=== PATIENT | male | born 1995 | race Caucasian/White ===

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

== ENCOUNTER → 2017-09-13 | Outpatient (REF) | payer BC, OTHER ==
[2017-09-13 18:03] LABS: ALBUMIN 3.6 GM/DL (3.2-5.2); ALBUMIN/GLOBULIN RATIO 1.06 (1.00-1.93); ALKALINE PHOSPHATASE 86 U/L (45-117); ALT/SGPT 25 U/L (12-78); ANION GAP 8 MEQ/L (8-16); AST/SGOT 16 U/L (7-37); BILIRUBIN,TOTAL 0.4 MG/DL (0.2-1.0); BLOOD UREA NITROGEN 14 MG/DL (7-18); CALCIUM LEVEL 8.8 MG/DL (8.5-10.1); CARBON DIOXIDE LEVEL 27 MEQ/L (21-32); CHLORIDE LEVEL 105 MEQ/L (98-107); CREATININE FOR GFR 0.86 MG/DL (0.55-1.30); GLUCOSE, FASTING 84 MG/DL (70-100); POTASSIUM SERUM 4.3 MEQ/L (3.5-5.1); SODIUM LEVEL 140 MEQ/L (136-145)
[2017-09-13 19:20] LABS: BASO % 0.6 % (0.0-1.0); EOS # 0.3 10^3/uL (0.0-0.50); HEMATOCRIT 41.9 % (36.0-47.0); HEMOGLOBIN 13.5 g/dl (12.0-15.5); IMMATURE GRANULOCYTE % 0.2 % (0-3.0); LYMPH # 1.7 10^3/uL (1.5-6.5); LYMPH % 31.7 % (24.0-44.0); MEAN CORPUSCULAR HEMOGLOBIN 29.5 pg (27.0-33.0); MEAN CORPUSCULAR HGB CONC 32.2 g/dl (32.0-36.5); MEAN CORPUSCULAR VOLUME 91.7 fl (80.0-96.0); MONO # 0.5 10^3/uL (0.0-0.8); MONO % 10.4 % (0.0-5.0); NEUTROPHILS # 2.7 10^3/uL (1.8-7.7); NEUTROPHILS % 52.1 % (36.0-66.0); PLATELET COUNT, AUTOMATED 207 10^3/uL (150-450); RED BLOOD COUNT 4.57 10^6/uL (4.00-5.40); RED CELL DISTRIBUTION WIDTH 12.6 % (11.5-14.5); WHITE BLOOD COUNT 5.2 10^3/uL (4.0-10.0)
[2017-09-21 13:33] LABS: LACOSAMIDE LEVEL 11.3 ug/mL (5.0-10.0)
[2017-09-21 13:33] LABS: LEVETIRACETAM (KEPPRA) 28.2 ug/mL (10.0-40.0)
== END ==
LOC: M LABNEURO 14:19
DX: G40.909 Epilepsy, unspecified, not intractable, without status epilepticus (principal)
CPT/HCPCS: 80053

== ENCOUNTER → 2018-01-05 | Outpatient (CLI) | payer BC, OTHER | LOC: M RAD 08:43 | DX: S43.006A Unspecified dislocation of unspecified shoulder joint, initial encounter (principal); X58.XXXA Exposure to other specified factors, initial encounter; Y92.9 Unspecified place or not applicable; S46.911A Strain of unspecified muscle, fascia and tendon at shoulder and upper arm level, right arm, initial encounter | CPT/HCPCS: 73221 ==

== ENCOUNTER → 2018-01-05 | Outpatient (CLI) | payer BC ==
[2018-01-05 10:40] LABS: BASO % 0.6 % (0.0-1.0); EOS # 0.3 10^3/uL (0.0-0.50); EOS % 5.4 % (0.0-3.0); HEMATOCRIT 41.1 % (36.0-47.0); HEMOGLOBIN 13.4 g/dl (12.0-15.5); IMMATURE GRANULOCYTE % 0.2 % (0-3.0); LYMPH # 2.2 10^3/uL (1.5-6.5); LYMPH % 40.4 % (24.0-44.0); MEAN CORPUSCULAR HEMOGLOBIN 30.7 pg (27.0-33.0); MEAN CORPUSCULAR HGB CONC 32.6 g/dl (32.0-36.5); MEAN CORPUSCULAR VOLUME 94.1 fl (80.0-96.0); MONO # 0.5 10^3/uL (0.0-0.8); MONO % 9.2 % (0.0-5.0); NEUTROPHILS # 2.4 10^3/uL (1.8-7.7); NEUTROPHILS % 44.2 % (36.0-66.0); PLATELET COUNT, AUTOMATED 208 10^3/uL (150-450); RED BLOOD COUNT 4.37 10^6/uL (4.00-5.40); WHITE BLOOD COUNT 5.4 10^3/uL (4.0-10.0)
[2018-01-05 11:27] LABS: ALBUMIN 3.6 GM/DL (3.2-5.2); ALBUMIN/GLOBULIN RATIO 1.03 (1.00-1.93); ALKALINE PHOSPHATASE 58 U/L (45-117); ALT/SGPT 16 U/L (12-78); ANION GAP 8 MEQ/L (8-16); AST/SGOT 11 U/L (7-37); BILIRUBIN,TOTAL 0.2 MG/DL (0.2-1.0); BLOOD UREA NITROGEN 14 MG/DL (7-18); CALCIUM LEVEL 8.5 MG/DL (8.5-10.1); CARBON DIOXIDE LEVEL 29 MEQ/L (21-32); CHLORIDE LEVEL 103 MEQ/L (98-107); CREATININE FOR GFR 0.74 MG/DL (0.55-1.30); GLUCOSE, FASTING 84 MG/DL (70-100); POTASSIUM SERUM 4.3 MEQ/L (3.5-5.1); SODIUM LEVEL 140 MEQ/L (136-145); TOTAL PROTEIN 7.1 GM/DL (6.4-8.2)
[2018-01-11 00:08] LABS: LAMOTRIGINE (LAMICTAL) 4.2 ug/mL (2.0-20.0)
[2018-01-11 00:08] LABS: LEVETIRACETAM (KEPPRA) 47.8 ug/mL (10.0-40.0)
== END ==
LOC: M LAB 08:47
DX: R56.9 Unspecified convulsions (principal)
CPT/HCPCS: 80053

== ENCOUNTER 2018-07-18 16:23 | Observation (INO) | payer BC ==
[~2018-07-18] VITALS: Ht 175.3 cm; Wt 68.4 kg
[2018-07-18 18:15] VITALS: BP 126/76
--- NOTE | 2018-07-18 19:35 | HPEPDOC ---
General Date of Admission July 18, 2018 at 18:20 Attending Physician: SOFÍA ABEL MD Chief Complaint The patient is a 23-year-old female admitted with a reason for visit of [facility] Seizures. History of Present Illness Patient is a 23-year-old female, past medical history significant for seizure disorder on antiseizure medication. Today, patient had 2 episodes of seizure activity, prompting seeking attention in the emergency room at [facility]. In the emergency room. Patient apparently had another seizure and she was transferred to this facility for further evaluation and management. 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 Last night she had a redbull drink, a bloody Isabel and an angry orchard drink. She also reports she has not been sleeping for a week now. Six months ago patient had breakthrough seizure and at that time she also was not getting enough sleep. Medications were not adjusted and doses were kept the same. Her neurologist Dr. Otero who practices here in [place] felt seizure was caused by lack of rest and adequate sleep. She reports compliance with her medications. At time of assessment. She reports feeling very tired. Otherwise, denies chills or fever, chest pain, shortness of breath, nausea, weakness, constipation or diarrhea Allergies Coded Allergies: No Known Allergies (Unverified , 07/18/18) Past Medical History Medical History Seizure disorder Vaping-Juul Family History Father: Hypertension and diabetes mellitus. Mother: Cancer Social History * Smoker: current smoker (vapes-juul) Alcohol: occationally Drugs: denies A-FIB/CHADSVASC A-FIB History Current/History of A-Fib/PAF?: No Current Oral Anticoagulant The: No Review of Systems Other systems A 10 point pertinent ROS was completed, negative except as stated in the HPI Physical Examination Other physical findings GENERAL: NAD SKIN : Warm, dry intact HEENT: Atraumatic, normocephalic, PERRL, moist mucous membrane CARDIOVASCULAR: Regular rate and rhythm, S1S2, no JVD, no edema, distal pulses + and palpable RESP: CTAB, no accessory muscle use noted ABDOMEN: BS+ non distended non tender : MS: no joint deformities NEURO: Alert and oriented x 3, CN2-12 grossly intact PSYCH: no anxiety or agitation, appropriate mood and affect. Vital Signs Vital Signs Date Time Temp Pulse Resp B/P (MAP) Pulse Ox O2 Delivery O2 Flow Rate FiO2 07/18/18 18:15 98.1 60 18 126/76 (93) Assessment/Plan Breakthrough seizure -Possibly induced by alcohol intake and redbull -Patient reports compliance with her medication -She is also on control, which could also reduce the therapeutic levels of her antiseizure medication -Has been discussed with neurologist- Dr Campbell -Recommending EEG, increase dose lamotrigine to 300mg BID after assessing current levels -She is not to drive for at least 6 months -Management and seizure precautions Nicotine use disorder -Has been discussed with patient and consult DVT prophylaxis -Lovenox subcutaneous daily Patient can be discharged tomorrow after EEG has been completed. She will need to be monitored overnight Plan / VTE VTE Prophylaxis Ordered?: Yes JANUSZ CARSONP July 18, 2018 19:35
[2018-07-18] MEDS ORDERED: ENOXAPARIN 40 MG/0.4 ML SYRINGE (J1650) SC SCH (20:00)
[2018-07-18] MEDS ORDERED: KEPP10002 PO (21:14)
[2018-07-18] MEDS ORDERED: CLEO1GEL TOP (21:14)
[2018-07-18] MEDS ORDERED: LARI1TAB11 PO (21:14)
[2018-07-18] MEDS ORDERED: LAMO200T2 PO (21:14)
[2018-07-18] MEDS ORDERED: LAMO100T PO (21:14)
[2018-07-18] MEDS ORDERED: CLIN2CR (21:14)
[2018-07-18] MEDS ORDERED: ALEV1TAB PO (21:16)
[2018-07-18 22:00] VITALS: BP 133/64
[2018-07-18] MEDS: levETIRAcetam 250MG TABLET (KEPPRA) PO SCH (22:15)
[2018-07-18] MEDS: lamoTRIgine 100MG TAB PO SCH (22:15)
[2018-07-19 02:00] VITALS: BP 120/58
[2018-07-19 06:00] VITALS: BP 123/62
[2018-07-19 06:18] LABS: HEMATOCRIT 38.2 % (36.0-47.0); HEMOGLOBIN 12.7 g/dl (12.0-15.5); MEAN CORPUSCULAR HEMOGLOBIN 31.6 pg (27.0-33.0); MEAN CORPUSCULAR HGB CONC 33.2 g/dl (32.0-36.5); PLATELET COUNT, AUTOMATED 162 10^3/uL (150-450); RED BLOOD COUNT 4.02 10^6/uL (4.00-5.40)
[2018-07-19 06:40] LABS: ALBUMIN 3.4 GM/DL (3.2-5.2); ALT/SGPT 12 U/L (12-78); BILIRUBIN,TOTAL 0.3 MG/DL (0.2-1.0); BLOOD UREA NITROGEN 13 MG/DL (7-18); CALCIUM LEVEL 8.8 MG/DL (8.5-10.1); CARBON DIOXIDE LEVEL 26 MEQ/L (21-32); CHLORIDE LEVEL 108 MEQ/L (98-107); CREATININE FOR GFR 0.86 MG/DL (0.55-1.30); GLOMERULAR FILTRATION RATE > 60.0 (>60); GLUCOSE, FASTING 103 MG/DL (70-100); POTASSIUM SERUM 3.6 MEQ/L (3.5-5.1); SODIUM LEVEL 140 MEQ/L (136-145); TOTAL PROTEIN 6.3 GM/DL (6.4-8.2)
[2018-07-19] MEDS: lamoTRIgine 100MG TAB PO SCH (09:55)
[2018-07-19] MEDS: levETIRAcetam 250MG TABLET (KEPPRA) PO SCH (09:55)
[2018-07-19 10:00] VITALS: BP 131/62
[2018-07-19 14:05] LABS: AMPHETAMINES URINE REFLEX NEGATIVE (NEGATIVE); BARBITURATES URINE REFLEX NEGATIVE (NEGATIVE); BENZODIAZEPINES URINE REFLEX NEGATIVE (NEGATIVE); CANNABINOIDS URINE REFLEX NEGATIVE (NEGATIVE); COCAINE METABOLITE URINE REFLE NEGATIVE (NEGATIVE); METHADONE URINE REFLEX NEGATIVE (NEGATIVE); OPIATES URINE REFLEX NEGATIVE (NEGATIVE); PHENCYCLIDINE URINE REFLEX NEGATIVE (NEGATIVE)
--- NOTE | 2018-07-19 14:52 | IPNPDOC ---
Subjective Date Seen The patient was seen on 07/19/18. Subjective Chief Complaint/HPI Patient complains of soreness of her right shoulder which got dislocated twice yesterday and did not pop back by itself as it usually does when this happens. Other cedeño she does not have any complaints. Her postictal state has resolved. Objective Physical Examination General Exam: Positive: Alert, Cooperative, No Acute Distress Eye Exam: Positive: PERRLA, Conjunctiva & lids normal, EOMI; Negative: Sclera icteric ENT Exam: Positive: Atraumatic, Mucous membr. moist/pink, Pharynx Normal Neck Exam: Positive: Supple; Negative: JVD, thyromegaly, +2 carotid pulse wo bruit, Lymphadenopathy, Other Heart Exam: Positive: Rate Normal, Regular Rhythm, Normal S1, Normal S2; Negative: Murmurs, Rubs Telemetry: Positive: Sinus, Bradycardia Abdomen Exam: Positive: Normal bowel sounds, Soft; Negative: Tenderness, Hepatospenomegaly Extremity Exam: Positive: Normal pulses, Tenderness (right shoulder as it got dislocated twice yesterday.); Negative: Clubbing, Cyanosis, Edema Skin Exam: Positive: Nl turgor and temperature; Negative: Rash, Breakdown Neuro Exam: Positive: Normal Gait, Normal Speech, Cranial Nerves 3-12 NL, Reflexes 2+ Assessment /Plan Assessment Patient is a 23-year-old female, past medical history of Epilepsy on antiseizure medication. Today, patient had 2 episodes of seizure activity, prompting seeking attention in the emergency room at [facility]. In the emergency room. Patient apparently had another seizure and she was transferred to this facility for further evaluation and management. 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 Last night she had a redbull drink, a bloody Isabel and an angry orchard drink. She also reports she has not been sleeping for a week now. Six months ago patient had breakthrough seizure and at that time she also was not getting enough sleep. She was admitted for break through seizures. Breakthrough seizure -Possibly induced by sleep deprivation and alcohol intake and redbull -Patient reports compliance with her medication -She is also on control, which could also reduce the therapeutic levels of her antiseizure medication -Has been discussed with neurologist- Dr Hughes -Recommending EEG, increase dose lamotrigine to 300mg BID after assessing current levels - however patient tells me she takes lamotrigine 300 mg bid already. -She is not to drive for at least 6 months -Management and seizure precautions Recurrent dislocation of the right shoulder It got dislocated twice yesterday during the seizure episode. follows with [facility] at [facility] she has been advised Physical therapy which she is yet to start. Nicotine use disorder Has been discussed with patient and consult DVT prophylaxis Lovenox subcutaneous daily Plan/VTE VTE Prophylaxis Ordered?: Yes VS, I&O, 24H, Fishbone Vital Signs/I&O Vital Signs Date Time Temp Pulse Resp B/P (MAP) Pulse Ox O2 Delivery O2 Flow Rate FiO2 07/19/18 10:00 97.5 82 16 131/62 (85) 97 I&O- Last 24 Hours up to 6 AM 07/19/18 05:59 Intake Total 250 ml Balance 250 ml Laboratory Data 24H LABS Laboratory Tests 2 07/18/18 19:11: Human Chorionic Gonadotropin, Quant < 1.0 07/18/18 19:33: 07/18/18 19:35: 07/19/18 05:35: Anion Gap 6L, Glomerular Filtration Rate > 60.0, Blood Urea Nitrogen 13, Creatinine 0.86, Sodium Level 140, Potassium Level 3.6, Chloride Level 108H, Carbon Dioxide Level 26, Calcium Level 8.8, Aspartate Amino Transf (AST/SGOT) 10, Alanine Aminotransferase (ALT/SGPT) 12, Alkaline Phosphatase 46, Total Bilirubin 0.3, Total Protein 6.3L, Albumin 3.4, Albumin/Globulin Ratio 1.17 07/19/18 05:36: Nucleated Red Blood Cells % (auto) 0.0 07/19/18 11:39: Urine Color YELLOW, Urine Appearance CLEAR, Urine pH 6.0, Urine Specific Milligan 1.006, Urine Protein NEGATIVE, Urine Glucose (UA) NEGATIVE, Urine Ketones NEGATIVE, Urine Blood NEGATIVE, Urine Nitrite NEGATIVE, Urine Bilirubin NEGATIVE, Urine Urobilinogen 0.2, Urine Leukocyte Esterase NEGATIVE, Urine WBC (Auto) 1, Urine RBC (Auto) 0, Urine Hyaline Casts (Auto) 0, Urine Bacteria (Auto) 1+H, Urine Squamous Epithelial Cells 2, Urine Sperm (Auto) 07/19/18 13:03: Urine Amphetamines Screen NEGATIVE, Urine Benzodiazepines Screen NEGATIVE, Urine Opiates Screen NEGATIVE, Urine Methadone Screen NEGATIVE, Urine Barbiturates Screen NEGATIVE, Urine Phencyclidine Screen NEGATIVE, Urine Cocaine Metabolite Screen NEGATIVE, Urine Cannabinoids Screen NEGATIVE CBC/BMP Laboratory Tests 07/19/18 05:35 Calcium Level 8.8, Aspartate Amino Transf (AST/SGOT) 10, Alanine Aminotransferase (ALT/SGPT) 12, Alkaline Phosphatase 46, Total Bilirubin 0.3, Total Protein 6.3 L, Albumin 3.4 07/19/18 05:36 Red Blood Count 4.02, Mean Corpuscular Volume 95.0, Mean Corpuscular Hemoglobin 31.6, Mean Corpuscular Hemoglobin Concent 33.2, Red Cell Distribution Width 11.5 Microbiology Microbiology 07/18/18 Blood Culture, Received Pending 07/18/18 Blood Culture, Received Pending BETHANIE DELGADILLO MD July 19, 2018 14:52
[2018-07-19 15:55] VITALS: BP 132/69
[2018-07-19] MEDS ORDERED: LAMO100T PO (17:37)
--- NOTE | 2018-07-20 11:55 | EEG ---
DATE OF PROCEDURE: 07/19/2018 REFERRING PHYSICIAN: Dr. Dereck Barber DIAGNOSIS: Seizure. EEG NUMBER: [id number] HISTORY: Patient with history of generalized tonic-clonic seizures who had recurrent seizures. She is currently taking Lamictal and Keppra. This EEG was done to rule out epileptic potential. TECHNICAL DESCRIPTION: This digital EEG was recorded by 21 scalp ear and two EKG electrodes and was reviewed in bipolar and referential montages following reformatting in 10-20 international electrode placement system. INTERPRETATION: Patient was noted to be in awake and drowsy states during this EEG. Resting awake background rhythm consisted of well-formed posterior dominant rhythm with anterior/posterior gradient comprising of 11 Hz alpha activity measuring 15-80 microvolts in amplitude, which was symmetric and reactive to eye opening. Attenuation of posterior dominant rhythm was seen during transition into drowsiness. Stage I and II sleep were reviewed and were symmetric bilaterally. Hyperventilation could not be performed. Photic stimulation remained unremarkable. There were multiple recurrences of left frontal and temporal and at times bilateral frontal and temporal sharp and slow wave complexes during wakefulness and sleep. No relevant clinical activity was noted. CONCLUSION: This EEG in awake, drowsy states, stage I and II sleep is abnormal due to presence of left frontal and temporal and at times bilateral frontal and temporal epileptiform discharges which may represent fragments of primary generalized epileptiform discharges or frontal lobe epilepsy. Clinical correlation is recommended. MTDD
--- NOTE | 2018-07-20 13:28 | CR ---
DATE OF CONSULTATION: 07/19/2018 REFERRING PHYSICIAN: Dr. Dereck Barber REASON FOR CONSULTATION: Generalized tonic-clonic seizures. HISTORY OF PRESENT ILLNESS: Adiel Art is a 23-year-old woman with history of epilepsy who follows with Dr. Otero at our office for her generalized tonic-clonic seizures. 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 The night before her generalized tonic-clonic seizure she had a Red Bull drink, a Bloody Isabel and Angry Orchard drink. She reported that she has not been sleeping for a week now. She had a generalized tonic-clonic seizure 6 months ago. She was not getting enough sleep at that time. Patient states that she has been compliant with her medications. When the patient came to [facility] as transfer from [facility], her lamotrigine dose was reported as 200 mg three times a day, so I recommended to increase it to 300 mg by mouth twice a day. The patient states that she has been taking 300 mg twice a day at home. She denies any headaches, neck or back pain. She denies dysphagia, dysarthria, diplopia, urinary incontinence. PAST MEDICAL HISTORY: Generalized epilepsy and seizures. HOME MEDICATIONS: - Keppra 1000 mg by mouth twice a day - Lamictal 3 mg by mouth twice a day SOCIAL HISTORY: She currently vapes Juul. She occasionally drinks alcohol but had a couple of drinks the night before her seizures. She denies illicit drugs. FAMILY HISTORY: Mother with history of cancer and father with a history of hypertension and diabetes. REVIEW OF SYSTEMS: All systems were reviewed and found to be noncontributory except as mentioned in history of present illness. ALLERGIES: NONE. PHYSICAL EXAMINATION: Temperature 96.9, pulse 65, respiratory 16, blood pressure 132/69. Heart: Regular rate and rhythm. Lungs: Clear to auscultation. Abdomen: Soft, nontender, nondistended. No pedal edema. No musculoskeletal abnormalities. No rash. No signs of meningeal irritation. No dysmetria, tremor or ataxia. Patient is awake, alert, oriented to place, person and time. Normal speech comprehension and repetition. Extraocular muscles are intact. No facial weakness. Tongue and uvula are midline. 5/5 strength in all four extremities. Deep tendon reflexes 2+ throughout. Normal sensation. Normal gait without ataxia. No nystagmus. Recent and distant memory is intact. DIAGNOSTIC STUDIES: Her CBC, metabolic profile, and urine toxicology screen were unremarkable. Her EEG showed left frontal and temporal and at times bilateral frontal and temporal fragments of epileptiform discharges consistent with primary generalized or frontal lobe epilepsy. ASSESSMENT: Primary generalized epilepsy and generalized tonic-clonic seizures. PLAN: 1. She is aware that she should not be driving. 2. Keppra 1000 mg by mouth twice a day and Lamictal 300 mg by mouth twice a day. It appears that gaby is some discrepancy in her dose of Lamictal. According to Dr. Allen who saw the bottle of her medications, her bottle of 200 mg pills had a lot more tablets than 100 mg tablets. 3. She declined increasing Keppra. She was advised to completely avoid alcohol. She should improve her sleep hygiene. Trazodone 1 mg by mouth nightly should be considered on outpatient basis. 4. Followup with Dr. Otero. She has an appointment scheduled next week.
== END 2018-07-19 18:08 | disposition home or self-care (01) ==
LOC: M MSPAV 18:20 → INTOOBSV 18:20
PROVIDERS: ADMIT Internal Medicine; ATTEND Internal Medicine
DX: G40.919 Epilepsy, unspecified, intractable, without status epilepticus (principal); Z79.899 Other long term (current) drug therapy; F17.200 Nicotine dependence, unspecified, uncomplicated

== ENCOUNTER 2019-08-02 10:22 | Emergency (ER) | payer BC ==
[~2019-08-02] VITALS: Ht 172.7 cm; Wt 71.8 kg
[~2019-08-02 10:22] MED LIST: ALEV1TAB PO; CLEO1GEL TOP; CLIN2CR; KEPP10002 PO; LAMO100T3 PO; LAMO200T3 PO; LARI1TAB11 PO
[2019-08-02] MEDS ORDERED: MELO15TA28 PO (10:58)
[2019-08-02 11:04] LABS: BASO % 0.5 % (0.0-1.0); EOS # 0.3 10^3/uL (0.0-0.5); EOS % 4.9 % (0.0-3.0); HEMATOCRIT 41.5 % (36.0-47.0); HEMOGLOBIN 14.2 g/dl (12.0-15.5); LYMPH # 1.1 10^3/uL (1.5-5.0); LYMPH % 18.6 % (24.0-44.0); MEAN CORPUSCULAR HEMOGLOBIN 31.8 pg (27.0-33.0); MEAN CORPUSCULAR HGB CONC 34.2 g/dl (32.0-36.5); MONO # 0.4 10^3/uL (0.0-0.8); MONO % 6.3 % (0.0-5.0); NEUTROPHILS # 4.1 10^3/uL (1.5-8.5); NEUTROPHILS % 69.5 % (36.0-66.0); PLATELET COUNT, AUTOMATED 204 10^3/uL (150-450); RED BLOOD COUNT 4.46 10^6/uL (4.00-5.40); WHITE BLOOD COUNT 5.9 10^3/uL (4.0-10.0)
[2019-08-02 12:05] LABS: INR 1.1; PROTHROMBIN TIME 13.9 SECONDS (11.8-14.0)
[2019-08-02 12:06] LABS: PARTIAL THROMBOPLASTIN TIME 27.5 SECONDS (25.0-38.4)
[2019-08-02 13:22] LABS: BLOOD UREA NITROGEN 6 MG/DL (7-18); CALCIUM LEVEL 8.7 MG/DL (8.5-10.1); CARBON DIOXIDE LEVEL 27 MEQ/L (21-32); CHLORIDE LEVEL 103 MEQ/L (98-107); CK-MB VALUE MASS < 1.0 NG/ML (<3.6); CPK CREATINE PHOSPHOKINASE 505 U/L (26-192); GLOMERULAR FILTRATION RATE > 60.0 (>60); GLUCOSE, FASTING 94 MG/DL (70-100); POTASSIUM SERUM 3.6 MEQ/L (3.5-5.1); SODIUM LEVEL 136 MEQ/L (136-145); TROPONIN I < 0.02 NG/ML (< 0.10)
[2019-08-02 13:25] LABS: HCG, SERUM QUALITATIVE NEGATIVE (NEGATIVE)
[2019-08-02 14:15] VITALS: BP 128/81
[2019-08-02] MEDS ORDERED: NS 1,000 ML IV ONE (14:30)
--- NOTE | 2019-08-03 07:43 | REP ---
CT BRAIN WITHOUT CONTRAST: CT brain performed without IV contrast. Ventricles are normal in size and position with no midline shift or mass effect. Harris-white differentiation is well maintained. There is no acute intracranial hemorrhage. There is no extra-axial fluid collection. 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 Bone window examination is unremarkable. The visualized mastoid air cells and paranasal sinuses are clear. IMPRESSION: Large cisterna magna. No acute intracranial abnormalities. Electronically Signed by Julito Harris MD 08/03/2019 09:58 A
--- NOTE | 2019-08-03 19:43 | ECGEPIP ---
[facility] - ED Test Date: 2019-08-02 Pat Name: SAM WHITTAKER Department: Room: - Gender: Female Client Services Specialist: rickie : 1995 Requested By: ZEESHAN Contreras Order Number: [id number] Reading MD: Alexa Kauffman Measurements Intervals [place] Rate: 71 P: 78 NC: 143 QRS: 106 QRSD: 101 T: 47 QT: 390 QTc: 425 Interpretive Statements SINUS RHYTHM WITH SINUS ARRHYTHMIA MARKED RIGHT AXIS DEVIATION NSTTW abnormalities NO PRIOR Electronically Signed on 08-03-2019 19:42:35 EDT by Alexa Kauffman
[2019-08-07 19:07] LABS: LAMOTRIGINE (LAMICTAL) 23.4 ug/mL (2.0-20.0); LEVETIRACETAM (KEPPRA) 37.6 ug/mL (10.0-40.0)
== END 2019-08-02 16:47 | disposition home or self-care (01) ==
LOC: M ED 10:22
DX: R79.9 Abnormal finding of blood chemistry, unspecified (principal); F14.10 Cocaine abuse, uncomplicated; G40.909 Epilepsy, unspecified, not intractable, without status epilepticus; R51 Headache; Z79.899 Other long term (current) drug therapy; Z79.3 Long term (current) use of hormonal contraceptives; F17.210 Nicotine dependence, cigarettes, uncomplicated

== ENCOUNTER 2019-12-12 08:42 | Observation (INO) | payer BC ==
[~2019-12-12] VITALS: Ht 167.6 cm; Wt 76.1 kg
[~2019-12-12 08:42] MED LIST changes: +MELO15TA28 PO
[2019-12-12] MEDS ORDERED: LEVE500T5 PO (08:59)
[2019-12-12 10:00] LABS: BASO % 0.4 % (0.0-1.0); EOS # 0.1 10^3/uL (0.0-0.5); HEMATOCRIT 38.9 % (36.0-47.0); HEMOGLOBIN 12.7 g/dl (12.0-15.5); LYMPH # 1.5 10^3/uL (1.5-5.0); LYMPH % 26.3 % (24.0-44.0); MEAN CORPUSCULAR HEMOGLOBIN 30.9 pg (27.0-33.0); MEAN CORPUSCULAR HGB CONC 32.6 g/dl (32.0-36.5); MEAN CORPUSCULAR VOLUME 94.6 fl (80.0-96.0); MONO # 0.4 10^3/uL (0.0-0.8); MONO % 7.6 % (0.0-5.0); NEUTROPHILS # 3.5 10^3/uL (1.5-8.5); NEUTROPHILS % 63.7 % (36.0-66.0); PLATELET COUNT, AUTOMATED 193 10^3/uL (150-450); RED BLOOD COUNT 4.11 10^6/uL (4.00-5.40); WHITE BLOOD COUNT 5.5 10^3/uL (4.0-10.0)
[2019-12-12 10:27] LABS: OSMOLALITY SERUM 285 MOSM/KG (275-295)
[2019-12-12 10:31] LABS: ALBUMIN 3.6 GM/DL (3.2-5.2); ALT/SGPT 15 U/L (12-78); BILIRUBIN,DIRECT < 0.1 MG/DL (0.0-0.2); BILIRUBIN,TOTAL 0.3 MG/DL (0.2-1.0); ETHYL ALCOHOL (ETHANOL) < 0.003 % (0.000-0.010); TOTAL PROTEIN 6.8 GM/DL (6.4-8.2)
[2019-12-12] MEDS ORDERED: LORazepam 2 MG/ML VIAL IV STA (10:33)
[2019-12-12] MEDS ORDERED: LORazepam 2 MG/ML VIAL As Ordered ONE (11:03)
[2019-12-12 11:11] LABS: AMPHETAMINES LEVEL URINE NEGATIVE (NEGATIVE); BARBITURATES URINE NEGATIVE (NEGATIVE); BENZODIAZEPINES URINE NEGATIVE (NEGATIVE); CANNABINOIDS URINE NEGATIVE (NEGATIVE); COCAINE METABOLITE URINE NEGATIVE (NEGATIVE); METHADONE URINE NEGATIVE (NEGATIVE); OPIATES URINE NEGATIVE (NEGATIVE); PHENCYCLIDINE URINE NEGATIVE (NEGATIVE)
[2019-12-12 15:08] LABS: BLOOD UREA NITROGEN 10 MG/DL (7-18); CALCIUM LEVEL 8.9 MG/DL (8.5-10.1); CARBON DIOXIDE LEVEL 27 MEQ/L (21-32); CHLORIDE LEVEL 106 MEQ/L (98-107); CREATININE FOR GFR 0.74 MG/DL (0.55-1.30); GLOMERULAR FILTRATION RATE > 60.0 (>60); GLUCOSE, FASTING 96 MG/DL (70-100); MAGNESIUM LEVEL 1.9 MG/DL (1.8-2.4); POTASSIUM SERUM 4.2 MEQ/L (3.5-5.1); SODIUM LEVEL 138 MEQ/L (136-145)
[2019-12-12 15:15] VITALS: BP 136/75
[2019-12-12 15:19] LABS: PROLACTIN 15.7 NG/ML
[2019-12-12 15:22] LABS: HCG, SERUM QUALITATIVE NEGATIVE (NEGATIVE)
--- NOTE | 2019-12-12 16:27 | REPVR ---
PROCEDURE INFORMATION: Exam: CT Head Without Contrast Exam date and time: 12/12/2019 4:10 PM Age: 24 years old Clinical indication: Other: R/O intracranial hemorrhage in setting of post-ictal state TECHNIQUE: Imaging protocol: Computed tomography of the head without contrast. Radiation optimization: All CT scans at this facility use at least one of these dose optimization techniques: automated exposure control; mA and/or kV adjustment per patient size (includes targeted exams where dose is matched to clinical indication); or iterative reconstruction. COMPARISON: CT Head without contrast 08/02/2019 1:23 PM FINDINGS: Brain: No hemorrhage. Unremarkable white matter for the patient's age. No mass effect. No evolving territorial infarct. Cerebral ventricles: No ventriculomegaly. Bones/joints: Unremarkable. No acute fracture. Paranasal sinuses: Visualized sinuses are unremarkable. No fluid levels. Mastoid air cells: Visualized mastoid air cells are well aerated. Soft tissues: Unremarkable. IMPRESSION: No acute intracranial abnormality seen. Electronically signed by: Gretel Ricks On 12/12/2019 16:27:09 PM
--- NOTE | 2019-12-12 18:37 | HPEPDOC ---
[facility] Medical History & Physical Date of Admission Dec 12, 2019 Date of Service: Dec 12, 2019 Primary Care Physician: Lewis Jackson MD Other Provider Dr. Venus Otero M.D., neurology Attending Physician: JANESSA RODRIGUEZ MD History and Physical CHIEF COMPLAINT: Altered mental Status HISTORY OF PRESENT ILLNESS: Adiel is a 24-year-old female with past medical history of seizure disorder on Keppra and Lamictal who presented to the [facility] ED this morning (12/11) via EMS from an ophthalmology appointment at Dr. Hope's office after she was experiencing lightheadedness with impaired concentration, and was exhibiting odd verbal responses to questions. She states she woke up this morning feeling "off,", particularly with focus. This was her first appointment with Dr. Rivera Bernal and when she exhibited the odd verbal responses to his exam questions, melissa moran she reported to the ED. She was being seen by ophthalmology on the recommendation of her neurologist, Dr. Venus Otero. She reports experiencing "episodes" over the past 3 months that consist of lightheadedness, dizziness, occasional nausea and vomiting, blurry vision (left eye worse than right), and issues with balance. She does endorse a fall a week and a half ago during one of these episodes onto her belly from a standing position contacting a carpeted floor(did not contact head or suffer any bleeding/bruising/significant trauma). Her vision complaints prompted Dr. Otero to suggest the outpatient Ophthalmology appointment. She has roughly 3 of these "episodes" per week and they can occur both with activity and at rest with no particular predilection for a certain time of day. As mentioned, she takes both Lamictal and Keppra for her seizure disorder. Roughly 4-5 months ago, the dosages of both medications were increased (Keppra 1000 mg to 1500 mg bid, and lamictal 400 mg to 600 mg bid). She previously took Lacosamide (Vimpat) for seizure disorder. Her mother, who is present with her in the ED, reports her most recent MRI was last week through neurology and was unremarkable. She was first diagnosed with the seizure disorder 5 years ago after suffering a concussion while playing basketball. She reports her last known seizure was in July of this year (2019) after snorting cocaine. Other than the increased dosage on her seizure medications. A few months back, she denies a ny current changes in medications. Denies any recent travel, sick contacts, or recent illnesses. She denies any current diplopia, blurry vision, decreased visual acuity, eye pain, ear pain, tinnitus, visual hallucinations, auditory hallucinations, or tremors. She also denies any current nausea, vomiting, fever, chills, night sweats. He PCP is Minna Naylorformerly SARIAH Lagunas, who practices in Dr. Lewis Jackson's [place] office. As mentioned, she follows with Dr. Venus Otero at [facility]. She also currently receives physical therapy in [place] for chronic right shoulder musculoskeletal issues, and therapy was arranged for by [facility]. She takes 15 mg of meloxicam prn qhs for her shoulder symptoms. Only other medication she takes is the ocp L arissia. She denies any allergies to medications. She reports a remote history of allergy to bees and states she does not have an epinephrine pen and never had any anaphylactic reaction and has subsequently been stung with no significant adverse sequelae. Patient verbalizes to hospitalist service upon admission that she is a full code. In the ED, Lamictal and Keppra levels were ordered and are currently pending. Both urinalysis and urine drug screen were unremarkable. CBC, [id number]-txec BNP, liver panel, and ethyl alcohol level were all unremarkable. TSH and prolactin were within normal limits. Qualitative beta hCG was negative. Per nursing and ED physician, between 10-10:30 AM, patient experienced an episode of head shaking/tremor and was subsequently given a 1 mg IV stat administration of lorazepam at 11 am. She denied any loss of consciousness with this event. Per the ED physician, there are also times during the initial evaluation and exam were her responses appeared off, almost as if she was in a post-ictal state. ED physician contacted neurology service who recommended no n ew medications at this time. Patient was subsequently admitted under the care of the hospitalist service for continued observation and monitoring. 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 She lives with her parents. She does have a boyfriend. She drinks approximately 3 glasses of wine per month, smokes 3-5 cigarettes per week and has smoked for a total 5 years, has a history of cocaine use (snorting) with last use in July 2019 that precipitated her last known seizure. FAMILY HISTORY: Father prediabetes, hypertension Motherhypertension, and unspecified thyroid issue One sister (2 years older) with no significant medical issues. ALLERGIES: Please see below. REVIEW OF SYSTEMS: CONSTITUTIONAL: Endorses unintentional weight gain of a few pounds over the past 6 months during the pandemic; Denies fever, chills, night sweats. HEENT: Endorses visual symptoms the past 3 months as discussed above in HPI; denies current eye pain, diplopia, blurry vision, visual hallucinations, ear pain, tinnitus, auditory hallucinations, tremors. CARDIOVASCULAR: Denies chest pain, chest pressure, or palpitations RESPIRATORY: Denies shortness of breath, cough, pleuritic chest pain GASTROINTESTINAL: Endorses some nausea and vomiting intermittently with her recent episodes as discussed in HPI; endorses diarrhea over the past two days. Denies any current nausea, vomiting, or abdominal pain GENITOURINARY: Denies any dysuria or hematuria SKIN: Denies any new rashes or pruritic areas MUSCULOSKELETAL: Denies any significant arthralgias or myalgias NEUROLOGICAL: Endorses lightheadedness, balance issues, and dizziness with episodes over the past 3 months as discussed in HPI; endorses headache over r ight forehead. Denies any loss of bowel or bladder control, or decreased sensation of extremities ENDOCRINE: Denies any abnormal menses and reports regular 28-day cycle on Larissia ocp witrh last menses last week. Denies any heat or cold intolerance HEMATOLOGIC/LYMPHATIC: Denies easy bleeding or bruising HOME MEDICATIONS: Please see below. PHYSICAL EXAMINATION: VITAL SIGNS: Temperature 8.1, pulse 76, respiratory rate 16, blood pressure 135/77, pulse oximetry 97 % on room air. GENERAL APPEARANCE: Young female lying upright in bed. This morning, appropriate. All questions and commands, in no acute distress. Alert and oriented 3. HEENT: Normocephalic, atraumatic. Noninjected, anicteric sclera. No conjunctival pallor. Moist mucous membranes. PERRLA. Extraocular movement is intact with some mild vertical nystagmus when looking up into the left. No pain on palpation of frontal or maxillary sinuses. NECK: Supple. Trachea midline. No cervical or supraclavicular adenopathy apprec iated. CARDIOVASCULAR: Regular rate, regular rhythm. Normal S1, S2. 2+ radial pulses bilaterally. LUNGS: Clear to auscultation bilaterally with no adventitious breath sounds appreciated. Breathing room air. Symmetric chest expansion. Equal full senses. ABDOMEN: Soft, nondistended and nontender. No guarding or rigidity. No hepatosplenomegaly appreciated. Pierced umbilicus. Tattoo over left lower qu adrant. MUSCULOSKELETAL: 5 out of 5 muscle strength testing of upper and lower extremities bilaterally EXTREMITIES: Lower christian areas are free of edema bilaterally. No cyanosis or clubbing. 2+ radial and posterior tibial pulses palpated bilaterally NEUROLOGICAL: Awake, alert and oriented 3. Cranial nerves III through XII grossly intact. There was some mild momentary vertical nystagmus on extraocular testing when looking up into the left. No dysdiadochokinesis or cerebellar deficits on testing. Sensation to light touch intact upper and lower christian is bilaterally. Non-dysarthric speech. Responded to all questions and commands appropriately. PSYCHIATRIC: Seems at times throughout the exam to look to her mother and defer for confirmation, otherwise mood and affect appear appropriate. LABORATORY DATA: Please see below. IMAGING: CT Head w/o contrast, 12/12/2019- FINDINGS: Brain: No hemorrhage. Unremarkable white matter for the patient's age. No mass effect. No evolving territorial infarct. Cerebral ventricles: No ventriculomegaly. Bones/joints: Unremarkable. No acute fracture. Paranasal sinuses. Visualized sinuses are unremarkable. No fluid levels. Mastoid air c ells: Visualized mastoid air cells are well aerated. Soft tissues: Unremarkable. IMPRESSION: No acute intracranial abnormality seen. MICROBIOLOGY: Please see below. 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 In the ED workup was unremarkable, but patient did have a witnessed momentary episode of head tremors with no LOC, after which she was given 1 mg of IV lorazepam stat in exhibited some post-ictal signs. She was admitted for further observation and monitoring of her neurologic status. #Post-ictal state in the setting of diagnosed seizure disorder -Episode this morning at coil winding supervisor's office of decreased concentration with odd verbal responses. Had subsequent episode in the ED later in the morning of head tremors with no loc - - given 1 mg IV stat lorazepam. No recent trauma. -Diagnosed with seizure disorder 5 years ago, takes Keppra and Lamictal at home; follows with Dr. Venus Otero of [facility] in [place]. [facility] who recommended no changes to medication regimen. -home lamictal and keppra continued. Placed on seizure precautions. -Metabolic panel, urine drug screen, UA, CBC, TSH, prolactin, ethyl EtoH all unremarkable. -CT head without contrast ordered to rule out any intracranial hemorrhage in the setting of post-ictal state. Impression results showed no acute intracranial abnormality. -MRI last week at [facility] reported to be unremarkable. -Last known seizure in July 2019 after snorting cocaine; reports no illegal drug use since -Reports recent 3 month history of neuro episodes consisting of lightheadedness, dizziness, occasional n/v, and balance issues; averages roughly 3 of these episodes per week #History of right shoulder musculoskeletal issues -home prn meloxicam qhs continued #DVT prophylaxis: sq heparin 5,000 u q12h DISPOSITION: Pending any overnight events or abnormal follow-up labs, likely discharge tomorrow Vital Signs Vital Signs Date Time Temp Pulse Resp B/P (MAP) Pulse Ox O2 Delivery O2 Flow Rate FiO2 12/12/19 15:15 98.4 66 17 136/75 (95) 99 Room Air Laboratory Data Labs 24H Laboratory Tests 2 12/12/19 09:39: Immature Granulocyte % (Auto) 0.0, Neutrophils (%) (Auto) 63.7, Lymphocytes (%) (Auto) 26.3, Monocytes (%) (Auto) 7.6H, Eosinophils (%) (Auto) 2.0, Basophils (%) (Auto) 0.4, Neutrophils # (Auto) 3.5, Lymphocytes # (Auto) 1.5, Monocytes # (Auto) 0.4, Eosinophils # (Auto) 0.1, Basophils # (Auto) 0.0, Nucleated Red Blood Cells % (auto) 0.0, Anion Gap 5L, Glomerular Filtration Rate > 60.0, Osmolality 285, Calcium Level 8.9, Magnesium Level 1.9, Total Bilirubin 0.3, Direct Bilirubin < 0.1, Aspartate Amino Transf (AST/SGOT) 11, Alanine Aminotransferase (ALT/SGPT) 15, Alkaline Phosphatase 50, Total Protein 6.8, Al bumin 3.6, Albumin/Globulin Ratio 1.1L, Thyroid Stimulating Hormone (TSH) 2.230, Prolactin 15.7, Human Chorionic Gonadotropin, Qual NEGATIVE, Ethyl Alcohol Level < 0.003 12/12/19 10:24: Urine Color YELLOW, Urine Appearance CLEAR, Urine pH 7.0, Urine Specific [place] 1.010, Urine Protein NEGATIVE, Urine Glucose (UA) NEGATIVE, Urine Ketones NEGATIVE, Urine Blood NEGATIVE, Urine Nitrite NEGATIVE, Urine Bilirubin NEGATIVE, Urine Urobilinogen 0.2, Urine Leukocyte Esterase NEGATIVE, Urine WBC (Auto) 1, Urine RBC (Auto) 1, Urine Hyaline Casts (Auto) 0, Urine Bacteria (Auto) 1+H, Urine Squamous Epithelial Cells 2, Urine Mucus (Auto) SMALL, Urine Sperm (Auto) , Urine Opiates Screen NEGATIVE, Urine Methadone Screen NEGATIVE, Urine Barbiturates Screen NEGATIVE, Urine Phencyclidine Screen NEGATIVE, Urine Amphetamines Screen NEGATIVE, Urine Benzodiazepines Screen NEGATIVE, Urine Cocaine Metabolite Screen NEGATIVE, Urine Cannabinoids Screen NEGATIVE CBC/BMP Laboratory Tests 12/12/19 09:39 Home Medications Scheduled Lamotrigine (Lamotrigine) 200 Mg Tablet, 600 MG PO BID Levonorgestrel-Ethin Estradiol (Larissia-28 Tablet) 1 Each Tablet, 1 TAB PO QPM Meloxicam (Meloxicam) 15 Mg Tablet, 15 MG PO DAILY levETIRAcetam (levETIRAcetam) 500 Mg Tablet, 1,500 MG PO BID Allergies Coded Allergies: No Known Allergies (Unverified , 07/18/18) A-FIB/CHADSVASC A-FIB History Current/History of A-Fib/PAF?: No Current PO Anticoag Therapy: No GME ATTESTATION GME ATTESTATION My faculty preceptor for this patient encounter was physically present during the encounter and was fully available. All aspects of the patient interview, examination, medical decision making process, and medical care plan development were reviewed and approved by the faculty preceptor. The faculty preceptor is aware and concurs with the plan as stated in the body of this note and will attest to such by his/her cosignature. ATTENDING NOTE Patient was seen and examined by me personally with the residents and the students. Agree with the above assessment and plan. CHRISTOPH ADDISON D.O. Dec 12, 2019 18:37 JANESSA RODRIGUEZ MD Dec 19, 2019 14:00
[2019-12-12 19:43] VITALS: BP 130/77
[2019-12-12] MEDS: lamoTRIgine 100MG TAB PO SCH (20:51)
[2019-12-12] MEDS: levETIRAcetam 250MG TABLET (KEPPRA) PO SCH (20:51)
[2019-12-12] MEDS: HEPARIN SOD (PORCINE) 5000UNITS/ML 1ML VIAL/SYRINGE SQ SCH (21:00)
[2019-12-12] MEDS ORDERED: MELOXICAM (MOBIC) 7.5 MG TAB PO PRN (21:45)
[2019-12-13 05:18] LABS: HEMATOCRIT 38.3 % (36.0-47.0); HEMOGLOBIN 12.1 g/dl (12.0-15.5); MEAN CORPUSCULAR HEMOGLOBIN 30.3 pg (27.0-33.0); MEAN CORPUSCULAR HGB CONC 31.6 g/dl (32.0-36.5); PLATELET COUNT, AUTOMATED 192 10^3/uL (150-450); RED BLOOD COUNT 3.99 10^6/uL (4.00-5.40); WHITE BLOOD COUNT 5.5 10^3/uL (4.0-10.0)
[2019-12-13 05:38] LABS: BLOOD UREA NITROGEN 15 MG/DL (7-18); CALCIUM LEVEL 9.1 MG/DL (8.5-10.1); CARBON DIOXIDE LEVEL 30 MEQ/L (21-32); CHLORIDE LEVEL 105 MEQ/L (98-107); CREATININE FOR GFR 0.81 MG/DL (0.55-1.30); GLOMERULAR FILTRATION RATE > 60.0 (>60); GLUCOSE, FASTING 102 MG/DL (70-100); POTASSIUM SERUM 4.3 MEQ/L (3.5-5.1); SODIUM LEVEL 137 MEQ/L (136-145)
[2019-12-13 06:00] VITALS: BP 106/63
[2019-12-13] MEDS: levETIRAcetam 250MG TABLET (KEPPRA) PO SCH (08:50)
[2019-12-13] MEDS: lamoTRIgine 100MG TAB PO SCH (08:51)
[2019-12-13] MEDS: HEPARIN SOD (PORCINE) 5000UNITS/ML 1ML VIAL/SYRINGE SQ SCH (08:51)
[2019-12-13] MEDS ORDERED: MELOXICAM (MOBIC) 7.5 MG TAB PO SCH (09:00)
[2019-12-13] MEDS ORDERED: INFLUENZA QUADRIVALENT PF VACCINE 0.5ML SYRINGE IM ONE (11:00)
--- NOTE | 2019-12-13 17:36 | DS.PDOC ---
Discharge Summary General Date of Admission Dec 12, 2019 at 08:43 Date of Discharge 12/13/19 Attending Physician: Sylvia Milton MD Discharge Summary HISTORY OF PRESENT ILLNESS: Adiel is a 24-year-old female with past medical history of seizure disorder on Keppra and Lamictal who presented to the [facility] ED this morning (12/11) via EMS from an ophthalmology appointment at Dr. Hope's office after she was experiencing lightheadedness with impaired concentration, and was exhibiting odd verbal responses to questions. She states she woke up this morning feeling "off,", particularly with focus. This was her first appointment with Dr. Rivera Bernal and when she exhibited the odd verbal responses to his exam questions, suggested she reported to the ED. She was being seen by ophthalmology on the recommendation of her neurologist, Dr. Venus Otero. She reports experiencing "episodes" over the past 3 months that consist of lightheadedness, dizziness, occasional nausea and vomiting, blurry vision (left eye worse than right), and issues with balance. She does endorse a fall a week and a half ago during one of these episodes onto her belly from a standing position contacting a carpeted floor(did not contact head or suffer any bleeding/bruising/significant trauma). Her vision complaints prompted Dr. Otero to suggest the outpatient Ophthalmology appointment. She has roughly 3 of these "episodes" per week and they can occur both with activity and at rest with no particular predilection for a certain time of day. As mentioned, she takes both Lamictal and Keppra for her seizure disorder. Roughly 4-5 months ago, the dosages of both medications were increased (Keppra 1000 mg to 1500 mg bid, and lamictal 400 mg to 600 mg bid). She previously took Lacosamide (Vimpat) for seizure disorder. Her mother, who is present with her in the ED, reports her most recent MRI was last week through neurology and was unremarkable. She was first diagnosed with the seizure disorder 5 years ago after suffering a concussion while playing basketball. She reports her last known seizure was in July of this year (2019) after snorting cocaine. Other than the increased dosage on her seizure medications. A few months back, she denies any current changes in medications. Denies any recent travel, sick contacts, or recent illnesses.She denies any current diplopia, blurry vision, decreased visual acuity, eye pain, ear pain, tinnitus, visual hallucinations, auditory hallucinations, or tremors. She also denies any current nausea, vomiting, fever, chills, night sweats.He PCP is Minna Naylorformerly SARIAH Lagunas, who practices in Dr. Lewis Jackson's [place] office. As mentioned, she follows with Dr. Vneus Otero at [facility]. She also currently receives physical therapy in [place] for chronic right shoulder musculoskeletal issues, and therapy was arranged for by [facility]. She takes 15 mg of meloxicam prn qhs for her shoulder symptoms. Only other medication she takes is the ocp Larissia. She denies any allergies to medications. She reports a remote history of allergy to bees and states she does not have an epinephrine pen and never had any anaphylactic reaction and has subsequently been stung with no significant adverse sequelae.Patient verbalizes to hospitalist service upon admission that she is a full code. In the ED, Lamictal and Keppra levels were ordered and are currently pending. Both urinalysis and urine drug screen were unremarkable. CBC, daxij-wn-flhb BNP, liver panel, and ethyl alcohol level were all unremarkable. TSH and prolactin were within normal limits. Qualitative beta hCG was negative. Per nursing and ED physician, between 10-10:30 AM, patient experienced an episode of head shaking/tremor and was subsequently given a 1 mg IV stat administration of lorazepam at 11 am. She denied any loss of consciousness with this event. Per the ED physician, there are also times during the initial evaluation and exam were her responses appeared off, almost as if she was in a post-ictal state. ED physician contacted neurology service who recommended no new medications at this time. Patient was subsequently admitted under the care of the hospitalist service for continued observation and monitoring. HOSPITAL COURSE: Over the evening patient did not have any more concerning episodes. She was walked in the hallways without any symptoms or unsteadiness. Lamotrigine and keppra levels were checked but can take several days to return. Per neurology, no changes in home medications were to take place currently; however, it is encouraged for patient to call neurology office after weekend to f/u on levels- if meds need to be adjusted then they can do so. Due to improvement and no further workup being done per neurology, patient was discharged home to f/u with both neurology and PCP after the weekend. She denied chest pain, n/v/d, lightheadedness, chills, fevers, headache, blurry vision. 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 She lives with her parents. She does have a boyfriend. She drinks approximately 3 glasses of wine per month, smokes 3-5 cigarettes per week and has smoked for a total 5 years, has a history of cocaine use (snorting) with last use in July 2019 that precipitated her last known seizure. FAMILY HISTORY: Father prediabetes, hypertension Motherhypertension, and unspecified thyroid issue One sister (2 years older) with no significant medical issues. ALLERGIES: Please see below. DISCHARGE MEDICATIONS: Please see below. PHYSICAL EXAMINATION: VITAL SIGNS: Please see below GENERAL APPEARANCE: NAD, resting sitting upright in bed HEENT: AT/NC, PERRLA, EOM intact, No conjunctival pallor. Moist mucous membranes. NECK: Supple. Trachea midline. CARDIOVASCULAR: Regular rate, regular rhythm. Normal S1, S2. No M/R/G LUNGS: CTAB, no W/R/R ABDOMEN: Soft, nondistended and nontender. No guarding or rigidity. No hepatosplenomegaly appreciated. Pierced umbilicus. Tattoo over left lower quadrant. MUSCULOSKELETAL: 5 out of 5 muscle strength testing of upper and lower extremities bilaterally EXTREMITIES: Lower christian areas are free of edema bilaterally. No cyanosis or clubbing. 2+ radial and posterior tibial pulses palpated bilaterally NEUROLOGICAL: Awake, alert and oriented 3. Cranial nerves III through XII grossly intact. No focal deficits, sensory and motor intact PSYCHIATRIC: Mood and affect appropriate LABORATORY DATA: Please see below. IMAGING: CT Head w/o contrast, 12/12/2019: No acute intracranial abnormality seen. MICROBIOLOGY: Please see below. 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 In the ED workup was unremarkable, but patient did have a witnessed momentary episode of head tremors with no LOC, after which she was given 1 mg of IV lorazepam stat in exhibited some post-ictal signs. She was admitted for further observation and monitoring of her neurologic status. #Seizure d/o -No episodes overnight, AAOx3 this AM, clear thinking and responds appropriately -Lamictal and keppra level ordered, will not return until 2 days per lab. -Metabolic panel, urine drug screen, UA, CBC, TSH, prolactin, ethyl EtoH all unremarkable. -CT head without contrast above -MRI last week at [facility] reported to be unremarkable. -Last known seizure in July 2019 after snorting cocaine; reports no illegal drug use since -C/w home meds of lamotrigine and lamictal -F/u with neurology office after weekend to get results of medication levels to see if meds need to be adjusted in dosing. #History of right shoulder musculoskeletal issues -home prn meloxicam qhs DISPOSITION: Discharging home today to f/u with both PCP and neurology after the weekend. TIME SPENT ON DISCHARGE: Greater than 30 minutes. Vital Signs/I&Os Vital Signs Date Time Temp Pulse Resp B/P (MAP) Pulse Ox O2 Delivery O2 Flow Rate FiO2 12/13/19 06:00 98.5 53 18 106/63 (77) 99 Room Air I&O- Last 24 Hours up to 6 AM 12/13/19 06:00 Intake Total 1050 ml Output Total 0 ml Balance 1050 ml Laboratory Data Labs 24H Laboratory Tests 2 12/13/19 04:52: Nucleated Red Blood Cells % (auto) 0.0, Anion Gap 2L, Glomerular Filtration Rate > 60.0, Calcium Level 9.1 CBC/BMP Laboratory Tests 12/13/19 04:52 Discharge Medications Scheduled Lamotrigine (Lamotrigine) 200 Mg Tablet, 600 MG PO BID, (Reported) Levonorgestrel-Ethin Estradiol (Larissia-28 Tablet) 1 Each Tablet, 1 TAB PO QPM, (Reported) Meloxicam (Meloxicam) 15 Mg Tablet, 15 MG PO DAILY, (Reported) levETIRAcetam (levETIRAcetam) 500 Mg Tablet, 1,500 MG PO BID, (Reported) Allergies Coded Allergies: No Known Allergies (Unverified , 07/18/18) Sylvia Milton MD Dec 13, 2019 17:36
[2019-12-18 08:08] LABS: LAMOTRIGINE (LAMICTAL) 15.4 ug/mL (2.0-20.0); LEVETIRACETAM (KEPPRA) 89.6 ug/mL (10.0-40.0)
== END 2019-12-13 10:41 | disposition home or self-care (01) ==
LOC: M ED 08:42 → M ED INP 08:43 → UNDOADMOB 13:55 → ENRESERV 14:19 → M MS5PR 15:10
PROVIDERS: ADMIT Internal Medicine; ATTEND Internal Medicine
DX: G40.909 Epilepsy, unspecified, not intractable, without status epilepticus (principal); R41.82 Altered mental status, unspecified; R42 Dizziness and giddiness; R11.2 Nausea with vomiting, unspecified; H53.8 Other visual disturbances; R26.81 Unsteadiness on feet; Z91.81 History of falling; M25.511 Pain in right shoulder; F14.11 Cocaine abuse, in remission; F17.200 Nicotine dependence, unspecified, uncomplicated; Z79.899 Other long term (current) drug therapy; Z79.3 Long term (current) use of hormonal contraceptives
CPT/HCPCS: 36415; 70450; 80047; 80048; 80076; 80175; 80180; 80307; 81001; 83735; 83930; 84146; 84443; 84702; 84703; 85025; 85027; 90471; 90686; 93041; 94760; 96372; 96374; 99285; G0480; J1644; J2060

== ENCOUNTER → 2021-09-22 | Outpatient (CLI) | payer BC ==
[~2021-09-22] MED LIST changes: +LEVE500T5 PO
== END ==
LOC: M WUC 15:14
PROVIDERS: ATTEND Physician Assistant
DX: M79.675 Pain in left toe(s) (principal)